=== PATIENT | male | born 1995 | race Caucasian/White ===

== ENCOUNTER → 2021-06-05 14:14 | Emergency (ER) | payer SELFPAY ==
--- NOTE | 2021-06-05 14:19 | NUR ---
pt left [facility], pt exited ambulance at scene and told amr that he did not want to be brought to hospital.
== END | disposition left against medical advice (07) ==
LOC: MED 14:14
DX: R41.82 Altered mental status, unspecified (principal); Z53.21 Procedure and treatment not carried out due to patient leaving prior to being seen by health care provider

== ENCOUNTER 2021-12-25 10:52 | Emergency (ER) | payer OTHER ==
[~2021-12-25] VITALS: Ht 180.3 cm; Wt 71.2 kg
[2021-12-25 10:54] VITALS: BP 127/73
--- NOTE | 2021-12-25 10:56 | NUR ---
PATIENT LEFT WITHOUT BEING SEEN BY DR. KERNS. NO FURTHER CARE PROVIDED FOR PATIENT.
== END 2021-12-25 10:56 | disposition left against medical advice (07) ==
LOC: MED 10:52
DX: F91.9 Conduct disorder, unspecified (principal); Z53.21 Procedure and treatment not carried out due to patient leaving prior to being seen by health care provider